=== PATIENT | female | born 1965 | race Hispanic/Latino ===

== ENCOUNTER 2016-12-23 11:56 | Emergency (ER) | payer OTHER ==
[2016-12-23 12:02] VITALS: BP 111/76; PULSE 72; TEMP 97; O2SAT 100
[2016-12-23 12:03] VITALS: BMI 19.1
--- NOTE | 2016-12-23 12:27 | ED PDOC ---
Lower Extremity Pain/Injury Time Seen by Provider: 12/23/16 12:08 Chief Complaint (Nursing): Lower Extremity Problem/Injury Chief Complaint (Provider): Sprained Ankle History Per: Patient History/Exam Limitations: no limitations Onset/Duration Of Symptoms: Mins Current Symptoms Are (Timing): Still Present Pain Scale Rating Of: 7 Additional Complaint(s): Jena Hancock, a 51 year old female, presents to the ED with ankle pain. The patient reports that she was walking and there was a pot hole covered in leaves that she did not see. She states that she stepped in the pot hole twisting her ankle. Pt reports lateral right ankle pain. Pt states the pain in non-radiating. No numbness/tingling. Pt reports hearing/feeling a pop sensation. PMD:Non [facility] Provider - Ankle/Foot Description Of Injury: Twisted Alleviating Factor(s): Ice Therapy - Risk Factors DVT Risk Factors: Pos: None Past Medical History Reviewed: Historical Data, Nursing Documentation, Vital Signs Vital Signs: Last Vital Signs Temp 97 F L 12/23/16 12:02 Pulse 72 12/23/16 12:02 Resp BP 111/76 12/23/16 12:02 Pulse Ox 100 12/23/16 12:02 - Medical History PMH: No Chronic Diseases - Surgical History Surgical History: No Surg Hx Other surgeries: Knee and lymph node surgery - Family History Family History: States: Unknown Family Hx - Living Arrangements Living Arrangements: With Family - Social History Current smoker - smoking cessation education provided: No Ex-Smoker (has not smoked in the last 12 months): No Alcohol: Occasional Drugs: Denies - Allergies Allergies/Adverse Reactions: Allergies Allergy/AdvReac Type Severity Reaction Status Date / Time No Known Allergies Allergy Verified 12/23/16 12:06 Review of Systems ROS Statement: Except As Marked, All Systems Reviewed And Found Negative Musculoskeletal: Positive for: Other (Ankle pain) Physical Exam - Reviewed Nursing Documentation Reviewed: Yes Vital Signs Reviewed: Yes - Physical Exam Appears: Positive for: Non-toxic, No Acute Distress Head Exam: Positive for: ATRAUMATIC, NORMAL INSPECTION, NORMOCEPHALIC Skin: Positive for: Normal Color (No ecchymosis ) Eye Exam: Positive for: Normal appearance. Negative for: Nystagmus ENT: Positive for: Normal ENT Inspection Neck: Positive for: Normal Pulses-Dorsalis Pedis (L): 2+ Pulses-Dorsalis Pedis (R): 2+ Pulses-Post. Tibialis (L): 2+ Pulses-Post. Tibialis (R): 2+ Extremity: Positive for: Tenderness (localized tenderness and edema to right lateral malleolus). Negative for: Normal ROM (limited ROM secondary to pain), Pedal Edema, Calf Tenderness, Deformity (No deformity to right ankle), Swelling (no swelling to right ankle) Neurologic/Psych: Positive for: Alert - ECG O2 Sat by Pulse Oximetry: 100 (RA) Pulse Ox Interpretation: Normal Medical Decision Making Medical Decision Makin Initial Impression 51 y/o female presenting with sprained ankle Initial Plan: * Ankle AP LAT * Motrin Tab 2 * Reevaluation Fracture of the distal right lateral malleolous. Pt reports continued pain but does not want anything stronger. Scribe Attestation Documented by Margarita Paez acting as a scribe for Joan Williamson PA-C. Scribe Attestation All medical record entries made by the Scribe were at my direction and personally dictated by me. I have reviewed the chart and agree that the record accurately reflects my personal performance of the history, physical exam, medical decision making, and the department course for this patient. I have also personally directed, reviewed, and agree with the discharge instructions and disposition. Disposition - Clinical Impression Clinical Impression: Ankle fracture - Patient ED Disposition Is Patient to be Admitted: No Counseled Patient/Family Regarding: Studies Performed, Diagnosis - Disposition Disposition: Routine/Home Disposition Time: 12:31 Condition: STABLE Instructions: Ankle Fracture (ED) Forms: Screen Fix [place] ([place]) - POA Present On Arrival: None
--- NOTE | 2016-12-23 15:43 | RAD ---
PROCEDURE: HISTORY: right lateral ankle pain COMPARISON: TECHNIQUE: FINDINGS: Transverse fracture of the inferior lateral malleolus with lateral malleolar soft tissue swelling. The ankle mortise is intact. IMPRESSION: As above.
== END 2016-12-23 13:30 | disposition home or self-care (01) ==
LOC: H.ER 11:56
DX: S82.91XA Unspecified fracture of right lower leg, initial encounter for closed fracture (principal); X50.9XXA Other and unspecified overexertion or strenuous movements or postures, initial encounter; Y92.410 Unspecified street and highway as the place of occurrence of the external cause